=== PATIENT | female | born 1985 | race Two or more races ===

== ENCOUNTER 2018-09-21 08:58 | Emergency (ER) | payer MEDICAID ==
[2018-09-21 11:42] LABS: ABSOLUTE EOSINOPHILS # (AUTO) 0.1 10^3/uL (0.0-0.6); ABSOLUTE LYMPHOCYTES (AUTO) 2.4 10^3/uL (0.5-4.7); ABSOLUTE MONOCYTES (AUTO) 0.3 10^3/uL (0.1-1.4); ABSOLUTE NEUT (AUTO) 2.4 10^3/uL (1.7-8.2); BASOPHILS % (AUTO) 0.9 % (0-2); HEMATOCRIT 41.4 % (36.0-47.0); HEMOGLOBIN 13.7 g/dL (12.0-15.5); LYMPHOCYTES % (AUTO) 45.7 % (13-45); MEAN CORPUSCULAR HEMOGLOBIN 26.3 pg (27.0-33.4); MEAN CORPUSCULAR HGB CONC 33.1 g/dL (32.0-36.0); MEAN CORPUSCULAR VOLUME 79 fl (80-97); MONOCYTES % (AUTO) 5.7 % (3-13); PLATELET COUNT 394 10^3/uL (150-450); RED BLOOD COUNT 5.22 10^6/uL (3.72-5.28); RED CELL DISTRIBUTION WIDTH 15.7 % (11.5-14.0); SEGMENTED NEUTROPHILS % (AUTO) 45.7 % (42-78); TOTAL CELLS COUNTED % (AUTO) 100 %; WHITE BLOOD COUNT 5.2 10^3/uL (4.0-10.5)
[2018-09-21 11:45] LABS: APPEARANCE,URINE SLIGHTLY-CLOUDY; BILIRUBIN,URINE NEGATIVE (NEGATIVE); COLOR,URINE YELLOW; GLUCOSE, URINE NEGATIVE (NEGATIVE); KETONES,URINE NEGATIVE (NEGATIVE); LEUKOCYTE ESTERASE,URINE NEGATIVE (NEGATIVE); NITRITE,URINE NEGATIVE (NEGATIVE); PROTEIN,URINE NEGATIVE (NEGATIVE); URINE SPECIFIC GRAVITY 1.009; UROBILINOGEN,URINE NEGATIVE mg/dL (<2.0)
--- NOTE | 2018-09-21 12:50 | RADIOLOGY REPORT (SQ) ---
EXAM DESCRIPTION: U/S OB 14+ TA/1 GEST W/DOPPLER COMPLETED DATE/TIME: 09/21/2018 12:35 pm REASON FOR STUDY: last menses 6 mo prior, spotting, no previous U/S COMPARISON: None. TECHNIQUE: Transabdominal and transvaginal static and realtime grayscale images acquired of the pelv is. Additional selected spectral and color Doppler images recorded. All images stored on PACs. LIMITATIONS: None. FINDINGS: UTERUS: The uterus measures 8.8 x 4.3 x 5.7 cm normal in echogenicity and contour. CERVICAL LENGTH: 3.4 cm Closed. The endometrial lining measures 4 mm which is normal. No evidence of IUP. RIGHT ADNEXA: Right ovary measures 3.3 x 2.1 x 1.8 cm with Doppler flow. LEFT ADNEXA: The left ovary measures 2.3 x 2.7 x 1.7 cm with Doppler flow. FREE FLUID: None. OTHER: No other significant finding. IMPRESSION: No evidence of IUP. TECHNICAL DOCUMENTATION: JOB ID: [id number] CO-69 2010 [employer]- All Rights Reserved rev-02/15 Reading location - IP/workstation name: [email or web address]
[2018-09-21 13:11] LABS: ANION GAP 8 (5-19); BLOOD UREA NITROGEN 15 mg/dL (7-20); CALCIUM 9.4 mg/dL (8.4-10.2); CARBON DIOXIDE 29 mmol/L (22-30); CHLORIDE 105 mmol/L (98-107); GLUCOSE 109 mg/dL (75-110); POTASSIUM 4.2 mmol/L (3.6-5.0); SODIUM 141.5 mmol/L (137-145)
--- NOTE | 2018-09-21 13:53 | ER Document Report ---
ED General - General Chief Complaint: OB Problem (<20wks) Stated Complaint: VAGINAL BLEEDING Time Seen by Provider: 09/21/18 09:39 Mode of Arrival: Ambulatory Information source: Patient TRAVEL OUTSIDE OF THE [place] IN LAST 30 DAYS: No - HPI Patient complains to provider of: Vaginal bleeding Onset: Other - 33-year-old female that presents for evaluation of vaginal bleeding in the setting of some cramping states that she felt as if her stomach was moving today. She is not had a normal menses in the last 6 months but has had intermittent spotting over the last 6 months without any pain. She denies any other symptoms, trauma to the abdomen, nausea, chest pain shortness of breath fevers or chills. Does not take any medications which than her blood she is never had any episodes like this in the past. - Related Data Allergies/Adverse Reactions: No Known Allergies Allergy (Verified 09/21/18 08:58) Past Medical History - General Information source: Patient Last Menstrual Period: March - Social History Smoking Status: Never Smoker Chew tobacco use (# tins/day): No Drug Abuse: None Family History: None Patient has suicidal ideation: No Patient has homicidal ideation: No Renal/ Medical History: Denies: Hx Peritoneal Dialysis Review of Systems - Review of Systems -: Yes All other systems reviewed and negative Physical Exam - Vital signs Vitals: Temp Pulse Resp BP Pulse Ox 97.6 F 74 18 122/75 100 09/21/18 09:01 09/21/18 09:01 09/21/18 09:01 09/21/18 09:01 09/21/18 09:01 Interpretation: Normal - General General appearance: Appears well, Alert - HEENT Head: Normocephalic, Atraumatic Eyes: Normal Pupils: PERRL - Respiratory Respiratory status: No respiratory distress Chest status: Nontender Breath sounds: Normal Chest palpation: Normal - Cardiovascular Rhythm: Regular Heart sounds: Normal auscultation Murmur: No - Abdominal Inspection: Obese Distension: Distended Bowel sounds: Normal Tenderness: Nontender Organomegaly: No organomegaly - Back Back: Normal, Nontender - Extremities General upper extremity: Normal inspection, Nontender, Normal color, Normal ROM, Normal temperature General lower extremity: Normal inspection, Nontender, Normal color, Normal ROM, Normal temperature, Normal weight bearing. No: Marni's sign - Neurological Neuro grossly intact: Yes Cognition: Normal Orientation: AAOx4 Anuja Coma Scale Eye Opening: Spontaneous Aquilla Coma Scale Verbal: Oriented Aquilla Coma Scale Motor: Obeys Commands Aquilla Coma Scale Total: 15 Speech: Normal Motor strength normal: LUE, RUE, LLE, RLE Sensory: Normal - Psychological Associated symptoms: Normal affect, Normal mood - Skin Skin Temperature: Warm Skin Moisture: Dry Skin Color: Normal Course - Re-evaluation Re-evalutation: 09/21/18 17:04 33-year-old with atypical periods in the last 6 months and the sensation that her abdomen is moving today. She says that previously she had had a negative test approximately 6 months prior but is not been evaluated for this since, previously it had a in the past which was normal is uncertain what her blood type is. On examination she does not have an obviously palpable uterine fundus though she is limited in examination because of the size of her abdomen. Current plan for this patient undergo ultrasound of the abdomen for presumptive . We will obtain RhoGam workup and labs. Ultrasound does not demonstrate any obvious intrauterine . Her hCG is undetectable at this time. Given that her uterus does not demonstrate an obvious IUP and she has no hCG is detectable at this time likely this patient is having spotting because of menses. Do not believe that she warrants further investigation at this time as this is u nlikely to represent a serious pathology related to the pelvis. - Vital Signs Vital signs: Temp Pulse Resp BP Pulse Ox 98.9 F 80 18 105/68 97 09/21/18 14:22 09/21/18 14:22 09/21/18 09:01 09/21/18 14:22 09/21/18 14:22 - Laboratory Result Diagrams: 09/21/18 10:05 09/21/18 12:38 Laboratory results interpreted by me: 09/21/18 09/21/18 09/21/18 10:05 10:05 12:38 MCV 79 L MCH 26.3 L RDW 15.7 H Lymphocytes % 45.7 H Creatinine 0.50 L Urine Blood LARGE H Discharge - Discharge Clinical Impression: Vaginal bleeding Condition: Good Disposition: HOME, SELF-CARE Additional Instructions: You were seen today in the emergency department for your vaginal bleeding. You had evaluation including a physical exam, tests of your blood, as well as an ultrasound to look and see if you had a baby. The ultrasound did not show a baby. You are not today. You should follow-up with your primary physician in the coming week for ongoing management of your abdominal cramping and symptoms. It is likely that you are just having a menstrual cycle which is slightly abnormal. Referrals: SARAH RICO, DO [Primary Care Provider] - Follow up as needed
[2018-09-21 14:23] VITALS: BP 105/68
== END 2018-09-21 14:33 | disposition home or self-care (01) ==
LOC: ER 08:58
DX: N93.8 Other specified abnormal uterine and vaginal bleeding (principal); Z32.02 Encounter for pregnancy test, result negative; R10.9 Unspecified abdominal pain
CPT/HCPCS: 36415; 76805; 80048; 81001; 84702; 85025; 86850; 86900; 86901; 93976; 99284

== ENCOUNTER 2019-03-09 19:46 | Emergency (ER) | payer MEDICAID ==
[2019-03-09] MEDS ORDERED: LORAZEPAM INJ 2 MG/1 ML VIAL IV ONE (20:14)
--- NOTE | 2019-03-09 20:18 | ER Document Report ---
ED Medical Screen (RME) - General Chief Complaint: Allergic Reaction Stated Complaint: DIFFICULTY BREATHING Time Seen by Provider: 03/09/19 20:04 Primary Care Provider: SARAH RICO DO [Primary Care Provider] - Follow up as needed TRAVEL OUTSIDE OF THE [place] IN LAST 30 DAYS: No - HPI Notes: 03/09/19 20:15 Patient is a 33-year-old female no significant past medical history who presents complaining of nasal congestion/discharge, cough, feeling short of breath, rash. Patient states that the rash started 3 days ago in the upper respiratory and breathing issues started today. Patient states that she does feel some tingling around her lips. The rash does not bother her and does not have any pruritus or pain. She denies any exposure to new chemicals, detergents, soaps, clothing, food. No recent travel or recent illness. Patient states that 1 of her relatives had a similar rash recently. Denies WALKER, fever, neck pain, drooling, hoarseness, URI, CP, Abd pain, n/v/d, dysuria, back pain. I have treated and performed a rapid initial assessment of this patient. A comprehensive ED assessment and evaluation of the patient, analysis of test results and completion of medical decision making process will be conducted by additional ED providers. PHYSICAL EXAMINATION: GENERAL: Well-appearing, well-nourished and in no acute distress. A&Ox4. Answers questions appropriately. throat: No angioedema or significant tonsillar swelling/erythema. No palatine shift. Uvula midline. LUNGS: Breath sounds clear to auscultation bilaterally and equal. No wheezes rales or rhonchi. HEART: Regular rate and rhythm without murmurs, rubs, gallops. Extremities: No cyanosis, clubbing, or edema b/l. No lower extremity asymmetry. Marni negative bilaterally. NEUROLOGICAL: Normal speech, normal gait. PSYCH: Anxious Skin: Macular erythemic rash noted to the trunk, ?Pityriasis - Related Data Allergies/Adverse Reactions: No Known Allergies Allergy (Verified 09/21/18 08:58) Past Medical History - Social History Frequency of alcohol use: None Drug Abuse: None Renal/ Medical History: Denies: Hx Peritoneal Dialysis Past Surgical History: Reports: Hx Section Physical Exam - Vital signs Vitals: Temp Pulse Resp BP Pulse Ox 98.6 F 115 H 24 H 115/77 99 03/09/19 20:00 03/09/19 20:00 03/09/19 20:00 03/09/19 20:00 03/09/19 20:00 Course - Vital Signs Vital signs: Temp Pulse Resp BP Pulse Ox 98.6 F 115 H 24 H 115/77 99 03/09/19 20:00 03/09/19 20:00 03/09/19 20:00 03/09/19 20:00 03/09/19 20:00 Doctor's Discharge - Discharge Referrals: SARAH RICO DO [Primary Care Provider] - Follow up as needed
[2019-03-09 20:47] LABS: VENOUS BLOOD BASE EXCESS 2.1 mmol/L; VENOUS BLOOD HCO3 25.7 mmol/L (20-32); VENOUS BLOOD PCO2 37.2 mmHg (35-63); VENOUS BLOOD PH 7.46 (7.30-7.42)
[2019-03-09 20:48] LABS: ABSOLUTE EOSINOPHILS # (AUTO) 0.2 10^3/uL (0.0-0.6); ABSOLUTE LYMPHOCYTES (AUTO) 1.7 10^3/uL (0.5-4.7); ABSOLUTE MONOCYTES (AUTO) 0.6 10^3/uL (0.1-1.4); ABSOLUTE NEUT (AUTO) 3.1 10^3/uL (1.7-8.2); BASOPHILS % (AUTO) 0.5 % (0-2); EOSINOPHILS % (AUTO) 4.3 % (0-6); HEMATOCRIT 39.4 % (36.0-47.0); HEMOGLOBIN 13.2 g/dL (12.0-15.5); LYMPHOCYTES % (AUTO) 30.4 % (13-45); MEAN CORPUSCULAR HEMOGLOBIN 25.9 pg (27.0-33.4); MEAN CORPUSCULAR HGB CONC 33.4 g/dL (32.0-36.0); MEAN CORPUSCULAR VOLUME 78 fl (80-97); MONOCYTES % (AUTO) 9.8 % (3-13); PLATELET COUNT 354 10^3/uL (150-450); RED BLOOD COUNT 5.09 10^6/uL (3.72-5.28); RED CELL DISTRIBUTION WIDTH 15.8 % (11.5-14.0); TOTAL CELLS COUNTED % (AUTO) 100 %; WHITE BLOOD COUNT 5.6 10^3/uL (4.0-10.5)
[2019-03-09 21:07] LABS: ALANINE AMINOTRANSFERASE 29 U/L (9-52); ALBUMIN 4.1 g/dL (3.5-5.0); ALKALINE PHOSPHATASE 63 U/L (38-126); ANION GAP 10 (5-19); ASPARTATE AMINO TRANSFERASE 25 U/L (14-36); BILIRUBIN,DIRECT 0.2 mg/dL (0.0-0.4); BILIRUBIN,TOTAL 0.3 mg/dL (0.2-1.3); BLOOD UREA NITROGEN 13 mg/dL (7-20); CALCIUM 9.5 mg/dL (8.4-10.2); CARBON DIOXIDE 26 mmol/L (22-30); CHLORIDE 107 mmol/L (98-107); CREATINE KINASE 110 U/L (30-135); GLUCOSE 119 mg/dL (75-110); POTASSIUM 4.1 mmol/L (3.6-5.0); SODIUM 143.4 mmol/L (137-145); TOTAL PROTEIN 7.7 g/dL (6.3-8.2)
--- NOTE | 2019-03-09 21:07 | RADIOLOGY REPORT (SQ) ---
EXAM DESCRIPTION: XR CHEST 2 VIEWS COMPLETED DATE/TME: 03/09/2019 20:12 CLINICAL HISTORY: 33 years, Female, cough COMPARISON: None. NUMBER OF VIEWS: Two views were obtained. TECHNIQUE: Frontal and lateral radiographs of the chest were obtained LIMITATIONS: None. FINDINGS: Cardiac and mediastinal contours are normal in appearance. Lungs are clear. No pleural effusion or pneumothorax. IMPRESSION: No acute disease. copyright 2010 [employer]- All Rights Reserved
[2019-03-09] MEDS ORDERED: LIDOCAINE 2% INJ-PF (20 MG/ML) 10 ML AMPUL NEB ONE (21:13)
[2019-03-09] MEDS ORDERED: DIPHENHYDRAMINE HCL 50 MG/ML VIAL IV ONE (21:13)
[2019-03-09] MEDS ORDERED: NORMAL SALINE 1000 ML 1,000 ML IV ONE (21:13)
--- NOTE | 2019-03-09 21:26 | ER Document Report ---
ED General - General Chief Complaint: Allergic Reaction Stated Complaint: DIFFICULTY BREATHING Time Seen by Provider: 03/09/19 20:04 Primary Care Provider: SARAH RICO DO [Primary Care Provider] - Follow up in 3-5 days Notes: Patient is a 33-year-old female without chronic medical problems who presents with complaints of shortness of breath, cough, sore throat and a rash. States that her symptoms started 3 days ago but became much worse within the last several hours. Describes the rash as being diffusely located along her arms, back and chest and is being itchy. States that her symptoms are moderate to sev ere in nature. No obvious triggering factor. No relieving factor. States that she has had a mild cough and some mild shortness of breath for the past several days but feels that it became much worse within the past several hours which is primarily the reason she came to the emergency department. Denies any history of similar symptoms in the Has not seen her general physician regarding today's concerns. The history and physical exam was obtained by the provider using Polish. A formal hospital painter ordnance was offered to the patient and any family at the bedside at the beginning of the encounter and was declined. TRAVEL OUTSIDE OF THE [place] IN LAST 30 DAYS: No - Related Data Allergies/Adverse Reactions: No Known Allergies Allergy (Verified 09/21/18 08:58) Past Medical History - General Information source: Patient - Social History Smoking Status: Never Smoker Frequency of alcohol use: None Drug Abuse: None Lives with: Family Family History: Reviewed & Not Pertinent Patient has suicidal ideation: No Patient has homicidal ideation: No Renal/ Medical History: Denies: Hx Peritoneal Dialysis Past Surgical History: Reports: Hx Section Review of Systems - Review of Systems Notes: Constitutional: Negative for fever. HENT: Positive for sore throat. Eyes: Negative for visual changes. Cardiovascular: Negative for chest pain. Respiratory: Positive for shortness of breath. Gastrointestinal: Negative for abdominal pain, vomiting or diarrhea. Genitourinary: Negative for dysuria. Musculoskeletal: Negative for back pain. Skin: Positive for rash. Neurological: Negative for headaches, weakness or numbness. 10 point ROS negative except as marked above and in HPI. Physical Exam - Vital signs Vitals: Temp Pulse Resp BP Pulse Ox 98.6 F 115 H 24 H 115/77 99 03/09/19 20:00 03/09/19 20:00 03/09/19 20:00 03/09/19 20:00 03/09/19 20:00 Interpretation: Tachycardic, Tachypneic Notes: PHYSICAL EXAMINATION: GENERAL: Well-appearing, well-nourished and in no acute distress. HEAD: Atraumatic, normocephalic. EYES: Pupils equal round and reactive to light, extraocular movements intact, sclera anicteric, conjunctiva are normal. ENT: nares patent, oropharynx clear without exudates. Moist mucous membranes. NECK: Normal range of motion, supple without lymphadenopathy, no stridor LUNGS: Breath sounds clear to auscultation bilaterally and equal. No wheezes rales or rhonchi. HEART: Regular rate and rhythm without murmurs ABDOMEN: Soft, nontender, normoactive bowel sounds. No guarding, no rebound. No masses appreciated. EXTREMITIES: Normal range of motion, no pitting or edema. No cyanosis. NEUROLOGICAL: No focal neurological deficits. Moves all extremities spontaneously and on command. PSYCH: Moderately anxious SKIN: Warm, Dry, normal turgor, macular papular rash located of the lower abdomen and bilateral forearms Course - Re-evaluation Re-evalutation: 03/09/19 21:20 Patient presents with complaints of 3 days of cough, nasal congestion, sore throat and shortness of breath. The patient also reports that she has had a scattered maculopapular rash over her abdomen, back and bilateral upper extremities. On initial assessment the patient is somewhat anxious, and has varying respiratory effort although is in no distress. No stridor or wheezing on exam. No oropharyngeal edema or airway narrowing. Chest x-ray clear, labs unremarkable. Clinical history not consistent with acute pulmonary embolus. P atient had significant improvement after receiving anxiolysis, nebulized lidocaine and Benadryl. Suspect probable viral etiology to her symptoms as opposed to a true allergic reaction given component of nasal congestion, cough, sore throat, and skin lesions are not consistent with true urticaria. At this time will discharge with return precautions and follow-up recommendations. Verbal discharge instructions given a the bedside and opportunity for questions given. Medication warnings reviewed. Patient is in agreement with this plan and has verbalized understanding of return precautions and the need for primary care follow-up in the next 24-72 hours. - Vital Signs Vital signs: Temp Pulse Resp BP Pulse Ox 98.6 F 98 14 119/89 H 100 03/09/19 22:50 03/09/19 22:50 03/09/19 22:50 03/09/19 22:50 03/09/19 22:50 - Laboratory Result Diagrams: 03/09/19 20:30 03/09/19 20:30 Laboratory results interpreted by me: 03/09/19 03/09/19 03/09/19 20:30 20:30 20:30 MCV 78 L MCH 25.9 L RDW 15.8 H VBG pH 7.46 H Glucose 119 H - Diagnostic Test Radiology reviewed: Image reviewed, Reports reviewed Radiology results interpreted by me: 03/10/19 03:38 Chest x-ray: No acute infiltrate or pneumothorax - EKG Interpretation by Me Additional EKG results interpreted by me: 03/10/19 03:38 Sinus tachycardia, rate 107, no ST elevations or depressions. QTC is 422. 03/10/19 03:39 Discharge - Discharge Clinical Impression: Cough, Sore throat, Rash and nonspecific skin eruption, Shortness of breath Condition: Good Disposition: HOME, SELF-CARE Additional Instructions: You were seen today for a rash, cough, nasal congestion and shortness of breath. Your symptoms appear to be likely viral in origin. Take cetirizine 10 mg daily which can be purchased [id number] for itching to the rash. Please follow closely with your primary care doctor within the next 24 to 48 hours. Return to the emergency department immediately if you have worsening of her symptoms, have increased difficulty breathing, pass out, have persistent vomiting, develop fever greater than 100.4 F, or any other symptoms that are worrisome to you Referrals: SARAH RICO DO [Primary Care Provider] - Follow up in 3-5 days
[2019-03-09 22:15] VITALS: BP 119/89
--- NOTE | 2019-03-09 22:42 | EKG REPORT ---
SEVERITY:- BORDERLINE ECG - SINUS TACHYCARDIA BORDERLINE T ABNORMALITIES, ANTERIOR LEADS : Confirmed by: Duane Haines MD 09-Mar-2019 22:41:47
== END 2019-03-09 22:50 | disposition home or self-care (01) ==
LOC: ER 19:46
DX: R05 Cough (principal); J02.9 Acute pharyngitis, unspecified; R06.02 Shortness of breath; R21 Rash and other nonspecific skin eruption; L29.8 Other pruritus; R09.81 Nasal congestion; R00.0 Tachycardia, unspecified
CPT/HCPCS: 93005; 94640; 99284; 96361; 96374; 96375; 36415; 82550; 85025; 80053; 84484; 82803; 71046; 93010; J1200; J2060; J7030; J3490

== ENCOUNTER 2019-11-24 18:24 | Emergency (ER) | payer MEDICAID ==
[2019-11-24] MEDS ORDERED: CETIRIZINE 10 MG TABLET PO ONE (18:55)
[2019-11-24] MEDS ORDERED: DEXAMETHASONE SOD PHOS INJ 10 MG/1 ML VIAL IM ONE (18:55)
[2019-11-24] MEDS ORDERED: BENZONATATE 100 MG CAPSULE PO ONE (18:55)
[2019-11-24] MEDS ORDERED: ONDANSETRON 4 MG TAB.RAPDIS PO ONE (18:56)
--- NOTE | 2019-11-24 19:01 | ER Document Report ---
HPI - HPI Time Seen by Provider: 11/24/19 18:42 Pain Level: 3 Context: Patient is a 34-year-old female who presents emergency department with a chief complaint of a cough. Patient states cough started this morning. She has a hacking cough. Patient was also recently seen by her dentist for a tooth extraction. She is currently on penicillin. Has had a runny nose. - CONSTITUTIONAL Constitutional: DENIES: Fever, Chills - NEURO Neurology: REPORTS: Headache - RESPIRATORY Respiratory: REPORTS: Coughing - REPRODUCTIVE Reproductive: DENIES: : - MUSCULOSKELETAL Musculoskeletal: DENIES: Extremity pain, Back Pain, Neck Pain - DERM Skin Color: Normal Skin Problems: None Past Medical History - Social History Smoking Status: Unknown if Ever Smoked Family History: Reviewed & Not Pertinent Patient has suicidal ideation: No Patient has homicidal ideation: No Renal/ Medical History: Denies: Hx Peritoneal Dialysis Past Surgical History: Reports: Hx Section Vertical Provider Document - CONSTITUTIONAL Agree With Documented VS: Yes Exam Limitations: No Limitations General Appearance: No Apparent Distress - INFECTION CONTROL TRAVEL OUTSIDE OF THE [place] IN LAST 30 DAYS: No - HEENT HEENT: Atraumatic, Normocephalic, PERRLA. negative: Conjuctival Injection, Pharyngeal Exudate, Pharyngeal Tenderness, Pharyngeal Erythema, Tympanic Membrane Red, Tympanic Membrane Bulging Notes: clear rhinorrhea; edema and erythema to nasal mucosa - NECK Neck: Normal Inspection, Supple. negative: Lymphadenopathy-Left, Lymphadenopathy-Right - RESPIRATORY Respiratory: Breath Sounds Normal, No Respiratory Distress - CARDIOVASCULAR Cardiovascular: Regular Rate, Regular Rhythm Pulses: Normal: Radial - GI/ABDOMEN Gastrointestinal: Abdomen Soft, Abdomen Non-Tender - MUSCULOSKELETAL/EXTREMETIES Musculoskeletal/Extremeties: FROM - NEURO Level of Consciousness: Awake, Alert, Appropriate Motor/Sensory: No Motor Deficit, No Sensory Deficit - DERM Integumentary: Warm, Dry, No Rash Course - Re-evaluation Re-evalutation: 11/24/19 Presentation is most consistent with a viral upper respiratory infection. Patient is overall well appearance, vitals within normal limits, well-hydrated. Patient denies any headache, neck pain, and has no evidence of meningismus on examination. Lungs are clear bilaterally. No evidence of respiratory distress. Based on clinical exam and history, I do not suspect an acute pneumonia, meningitis, strep pharyngitis, or an acute encephalitis. Influenza test is negative. Will discharge patient with return precautions and followup recommendations. They are in agreement this plan have verbalized understanding return precautions. - Vital Signs Vital signs: Temp Pulse Resp BP Pulse Ox 98.6 F 91 22 H 125/82 98 11/24/19 18:43 11/24/19 18:43 11/24/19 18:43 11/24/19 18:43 11/24/19 18:43 Discharge - Discharge Clinical Impression: Upper respiratory infection, viral Condition: Stable Disposition: HOME, SELF-CARE Additional Instructions: You were seen today in the emergency department for a cough. Your symptoms are most consistent with an upper respiratory viral infection. Please take acetaminophen 1000 mg and ibuprofen 600 mg every 6 hours as needed for any body aches or fever. You have been given cetirizine, medication to help with your runny nose. Take 1 tablet every day while you have symptoms. You have also been given Flonase, medication to help with the inflammation in your nose. Place 1 spray to each nostril twice a day. If you develop a fever greater than 100.4 F while on ibuprofen and acetaminophen, develop shortness of breath, difficulty breathing, or any symptoms that are worrisome to you, please return to the emergency department. You are also being sent home with Tessalon Perles for your cough. Take them as needed. Prescriptions: Benzonatate [Tessalon Perles 100 mg Capsule] 100 mg PO Q8HP PRN #40 capsule PRN Reason: Cetirizine HCl [All Day Allergy] 10 mg PO DAILY #30 tablet Fluticasone Propionate [Flonase Nasal Jeremiah 50 Mcg/Jeremiah 16 gm] 2 sprays NASL Q12 #1 inhaler Forms: Return to Work Referrals: SARAH RICO DO [Primary Care Provider] - Follow up in 3-5 days
[2019-11-24 19:35] LABS: A TYPE INFLUENZA AG NEGATIVE (NEGATIVE); B INFLUENZA AG NEGATIVE (NEGATIVE)
[2019-11-24 20:24] VITALS: BP 112/67
== END 2019-11-24 20:20 | disposition home or self-care (01) ==
LOC: ER 18:24
DX: J06.9 Acute upper respiratory infection, unspecified (principal)
CPT/HCPCS: 99283; 96372; 87804; J3490 ×2; S0119; J1100

== ENCOUNTER → 2020-03-23 | Outpatient (CLI) | payer MEDICAID ==
--- NOTE | 2020-03-23 10:09 | RADIOLOGY REPORT (SQ) ---
EXAM DESCRIPTION: CHEST PA/LATERAL IMAGES COMPLETED DATE/TIME: 03/23/2020 9:43 am REASON FOR STUDY: COUGH VARIANT ASTHMA COMPARISON: PA and lateral views of the chest from 03/09/2019. EXAM PARAMETERS: NUMBER OF VIEWS: Two views. TECHNIQUE: PA and lateral views of the chest were obtained. RADIATION DOSE: NA. LIMITATIONS: None. FINDINGS: LUNGS AND PLEURA: No consolidation, pleural effusion or pneumothorax. MEDIASTINUM AND HILAR STRUCTURES: No mediastinal or hilar contour abnormality. HEART AND VASCULAR STRUCTURES: The cardiac silhouette and pulmonary vasculature are within normal gregory its. BONES: No acute findings. HARDWARE: None in the chest. OTHER: No other finding. IMPRESSION: No acute cardiopulmonary process. TECHNICAL DOCUMENTATION: JOB ID: [id number] 2010 [employer]- All Rights Reserved Reading location - IP/workstation name: [email or web address]
[2020-03-23 10:31] LABS: ABSOLUTE EOSINOPHILS # (AUTO) 0.1 10^3/uL (0.0-0.6); ABSOLUTE LYMPHOCYTES (AUTO) 2.2 10^3/uL (0.5-4.7); ABSOLUTE MONOCYTES (AUTO) 0.4 10^3/uL (0.1-1.4); ABSOLUTE NEUT (AUTO) 2.4 10^3/uL (1.7-8.2); BASOPHILS % (AUTO) 0.5 % (0-2); EOSINOPHILS % (AUTO) 1.9 % (0-6); HEMATOCRIT 39.3 % (36.0-47.0); HEMOGLOBIN 12.9 g/dL (12.0-15.5); MEAN CORPUSCULAR HEMOGLOBIN 25.6 pg (27.0-33.4); MEAN CORPUSCULAR HGB CONC 32.8 g/dL (32.0-36.0); MEAN CORPUSCULAR VOLUME 78 fl (80-97); MONOCYTES % (AUTO) 7.4 % (3-13); PLATELET COUNT 381 10^3/uL (150-450); RED BLOOD COUNT 5.04 10^6/uL (3.72-5.28); RED CELL DISTRIBUTION WIDTH 16.2 % (11.5-14.0); SEGMENTED NEUTROPHILS % (AUTO) 47.2 % (42-78); TOTAL CELLS COUNTED % (AUTO) 100 %; WHITE BLOOD COUNT 5.1 10^3/uL (4.0-10.5)
== END ==
LOC: OD 09:15
PROVIDERS: ATTEND Internal Medicine Pulmonary Disease
DX: J45.991 Cough variant asthma (principal)
CPT/HCPCS: 36415; 71046; 82785; 85025; 86615